=== PATIENT | female | born 1995 ===

== ENCOUNTER → 2019-03-15 | Outpatient (CLI) | payer MEDICAID | END | disposition home or self-care (01) | LOC: U/S 14:48 | PROVIDERS: ATTEND Registered Nurse Obstetric, Inpatient | DX: O36.80X0 Pregnancy with inconclusive fetal viability, not applicable or unspecified (principal); O26.841 Uterine size-date discrepancy, first trimester; Z3A.01 Less than 8 weeks gestation of pregnancy | CPT/HCPCS: 76801; 76817 ==